=== PATIENT | female | born 1985 | race African-American/Black ===

== ENCOUNTER 2016-09-26 16:30 | Emergency (ER) | payer OTHER ==
[~2016-09-26] VITALS: Ht 165.1 cm; Wt 81.7 kg
--- NOTE | ~2016-09-26 | EKG ---
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 : 1985 Requested By: Doroteo Maxwell Order Number: [id number] MD: Graham Gonzalez Measurements Intervals [place] Rate: 73 P: 41 GA: 175 QRS: 32 QRSD: 91 T: 10 QT: 374 QTc: 413 Interpretive Statements Sinus rhythm RSR' in V1 or V2, probably normal variant Baseline wander in lead(s) V1 No previous ECG available for comparison Electronically Signed On 09-27-2016 8:30:40 RECREATIONAL AIDE by Graham Gonzalez [email or web address] <ELECTRONICALLY SIGNED> By: Graham Gonzalez MD, [facility] 09/27/16 0830 30 30 Graham Gonzalez MD, [facility] /EPI
[2016-09-26 17:39] LABS: URINE BILIRUBIN NEGATIVE (Negative); URINE BLOOD NEGATIVE (Negative); URINE COLOR YELLOW; URINE GLUCOSE-RANDOM* NEGATIVE (Negative); URINE KETONES NEGATIVE (Negative); URINE LEUKOCYTES-REFLEX NEGATIVE (Negative); URINE PROTEIN (DIPSTICK) NEGATIVE (Negative); URINE UROBILINOGEN 0.2 E.U./dl (0.2-1.0)
[2016-09-26] MEDS ORDERED: NAPROSYN500 MG PO (18:22)
[2016-09-26] MEDS ORDERED: LIORESAL 10 MG10 MG PO (18:22)
[2016-09-26] MEDS ORDERED: NORCO 5-325 TA1 EACH PO (18:22)
[2016-09-26 18:46] VITALS: BP 117/75
== END 2016-09-26 18:52 | disposition home or self-care (01) ==
LOC: ER 16:30
PROVIDERS: Emergency Medicine
DX: S73.102A Unspecified sprain of left hip, initial encounter (principal); V49.59XA Passenger injured in collision with other motor vehicles in traffic accident, initial encounter; Y93.89 Activity, other specified; Y92.89 Other specified places as the place of occurrence of the external cause; Y99.8 Other external cause status